=== PATIENT | female | born 1940 | race Caucasian/White ===

== ENCOUNTER 2016-10-08 18:25 | Emergency (ER) | payer MEDICARE, BC ==
[2005-12-30 06:08] VITALS: BP 153/83
[~2016-10-08] VITALS: Ht 160 cm; Wt 77.3 kg
[~2016-10-08 18:25] MED LIST: ACCUPRIL40MGTAB; ACCUPRIL40MGTAB PO; ACTOS 45MG45 MG/TAB PO; ACTOS30 MG PO; AEROSPAN80 MCG/Act IH; ALDACTONE 25MG25 M1 PO; ALPHAG-P-0.1-5ML OP; ASPIRIN E.C. 8181 MG PO; CALCIUM + D 6001 TA1 PO; CALCIUM 600MG+D1 TAB PO; CIPRO 250MG TA250 MG PO; CLARITIN 1010 MG/TAB PO; CLARITIN EYE 5 M5 ML OP; COREG 25MG25 MG/TAB PO; COREG 6.256.25 MG/TA PO; CRANBERRY1 POW PO; CYMBALTA 30MG30 MG PO; DITROPAN 5MG TAB5 MG PO; EPA FISH OIL1000 MG PO; FERROUS SULFATE65 MG PO; FISH OIL500 MG PO; FLONASEALLERGY NS; FLOVENT DI50 MCG/Act IH; FOLIC ACID 40400 MCG PO; GLUCOPHAGE500 MG/TAB PO; LECITHIN SUPER420 MG; MAG-OX 400400 MG/TAB PO; MAGNESIUM250 M1 PO; MAGOX 400241.3 MG PO; NITROSTAT0.4 MG/TAB SL; NORCO 325 MG-51 TAB PO; NORVASC 5MG5 MG/TAB PO; PROBIOTIC-MAJOR PO; PROTONIX 40MG T40 MG PO; SODIUM BICARBO650 MG PO; SYNTHROID0.075 MG/T PO; TRILIPIX 135MG; VITAMIN B-1000 MCG/T PO; VITAMIN C500 MG PO; ZADITOR 5 ML5 ML OP; ZYLOPRIM 100MG100 MG PO; eye promise restore PO
[2016-10-08 19:54] VITALS: BP 158/78; PULSE 76; TEMP 97.8
== END 2016-10-08 19:56 | disposition home or self-care (01) ==
LOC: COL.ER 18:25
DX: Z48.01 Encounter for change or removal of surgical wound dressing (principal); Z47.89 Encounter for other orthopedic aftercare

== ENCOUNTER → 2017-01-26 | Outpatient (CLI) | payer MEDICARE, BC | LOC: MC.RAD 01-25 13:00 | DX: Z12.31 Encounter for screening mammogram for malignant neoplasm of breast (principal); R92.1 Mammographic calcification found on diagnostic imaging of breast ==

== ENCOUNTER → 2018-02-19 | Outpatient (CLI) | payer MEDICARE, BC | LOC: MC.RAD 09:20 | DX: Z12.31 Encounter for screening mammogram for malignant neoplasm of breast (principal) ==

== ENCOUNTER → 2018-06-15 | Outpatient (CLI) | payer MEDICARE, BC | LOC: COL.RAD 10:23 | DX: N28.9 Disorder of kidney and ureter, unspecified (principal); R94.5 Abnormal results of liver function studies; Z90.49 Acquired absence of other specified parts of digestive tract ==

== ENCOUNTER → 2018-09-24 | Outpatient (REF) | LOC: ZMSC 08:16 | DX: Z01.89 Encounter for other specified special examinations (principal) ==

== ENCOUNTER 2019-02-09 04:02 | Inpatient (IN) | payer MEDICARE, BC ==
[2005-12-30 06:08] VITALS: BP 153/83
[~2019-02-09] VITALS: Ht 160 cm; Wt 75.0 kg
[2019-02-09] VITALS (14 sets, daily range): BP systolic 105–191; BP diastolic 46–82; PULSE 65–84; TEMP 97.3–98.1
[~2019-02-09 04:02] MED LIST changes: +ALPHAG-P-0.1-5ML OD; -ALPHAG-P-0.1-5ML OP; -CYMBALTA 30MG30 MG PO; +CYMBALTA 60MG60 MG PO; -FERROUS SULFATE65 MG PO; +NATURAL IRON65 MG PO
[2019-02-09 04:41] LABS: BASO % 0.3 % (0.0-2.0); EOS # 0.4 (0.0-0.7); EOS % 3.5 % (0-4.0); GRAN # 7.4 (1.4-6.5); GRAN % 72.7 % (42.2-75.2); LYMPH # 1.7 (1.2-3.4); MEAN CELL VOLUME 101 fl (80.0-100.0); MEAN CORPUSCULAR HGB CONC 30 g/dl (33.0-37.0); MEAN PLATELET VOLUME 9.8 fl (7.4-10.4); MONO # 0.6 (0.1-0.6); MONO % 6.2 % (1.7-9.3); PLATELET COUNT 189 K/mm3 (130-400); RED BLOOD COUNT 2.31 M/mm3 (4.10-5.30); REDCELL DISTRIBUTION WIDTH-CV 14.8 % (11.5-14.5)
[2019-02-09 04:46] LABS: HEMATOCRIT 23.4 % (37.0-47.0); HEMOGLOBIN 7.1 g/dl (12.5-16.0); MEAN CORPUSCULAR HEMOGLOBIN 31 pg (27.0-31.0)
[2019-02-09 04:57] LABS: ALBUMIN 3.3 gm/dL (3.5-5.0); BILIRUBIN,TOTAL 0.4 mg/dL (0.0-1.0); CALCIUM 8.4 mg/dL (8.4-10.2); CREATININE, serum 1.04 (0.52-1.25); TOTAL PROTEIN 5.7 gm/dL (6.4-8.2)
[2019-02-09 05:01] LABS: POTASSIUM 4.3 mmol/L (3.4-5.0)
[2019-02-09] MEDS ORDERED: NORVASC2.5 MG PO (06:30)
[2019-02-09] MEDS ORDERED: ZYRTEC 10MG10 MG PO (06:31)
[2019-02-09] MEDS ORDERED: CLEOCIN HC150 MG/CAP PO (06:32)
[2019-02-09] MEDS ORDERED: TEMOVATE50TS (06:33)
[2019-02-09] MEDS ORDERED: DAPSONE 25MG TA25 MG PO (06:34)
[2019-02-09] MEDS ORDERED: LASIX 20MG TABL20 MG PO (06:35)
[2019-02-09] MEDS ORDERED: MYRBETR25MG PO (06:36)
[2019-02-09] MEDS ORDERED: COMPLETE MULTI1 TA1 PO (06:42)
[2019-02-09] MEDS ORDERED: FOSAMAX 70MG TA70 MG PO (06:44)
[2019-02-09] MEDS ORDERED: TYLENOL 500MG500 MG PO (06:45)
[2019-02-09] MEDS ORDERED: LEADER EYE ITCH5 ML OP (07:07)
[2019-02-09] MEDS ORDERED: ZYRTEC5 MG PO (07:09)
[2019-02-09] MEDS ORDERED: CRANBERRY500 M3 PO (07:10)
[2019-02-09 13:28] LABS: MEAN CORPUSCULAR HGB CONC 31 g/dl (33.0-37.0); MEAN PLATELET VOLUME 10.6 fl (7.4-10.4); PLATELET COUNT 197 K/mm3 (130-400); RED BLOOD COUNT 2.81 M/mm3 (4.10-5.30); REDCELL DISTRIBUTION WIDTH-CV 18.6 % (11.5-14.5)
[2019-02-09 13:29] LABS: HEMATOCRIT 26.8 % (37.0-47.0); HEMOGLOBIN 8.2 g/dl (12.5-16.0); MEAN CELL VOLUME 95 fl (80.0-100.0); MEAN CORPUSCULAR HEMOGLOBIN 29 pg (27.0-31.0)
--- NOTE | 2019-02-09 16:36 | NUR ---
Plan is to return home with Andrzej in [facility]. Patient erports that she resides in and her PCP is Dr. Lubna Laura. Patient uses [facility] for medications. Patient reports that use of a cane while in the community and CPAP every day. Patient also uses [facility] for medications. A good contact number s [phone] for her spouse. NO additonal concerns at this time.
--- NOTE | 2019-02-09 17:15 | NUR ---
Patient returns from colonoscopy, assessment unchanged.
[2019-02-09 17:46] LABS: HEMATOCRIT 24.5 % (37.0-47.0); HEMOGLOBIN 7.9 g/dl (12.5-16.0)
--- NOTE | 2019-02-09 20:19 | NUR ---
PT DOES HAVE A HOME CPAP BUT DID NOT BRING HERS IN. SHE IS NOT WANTING TO WEAR ONE OF OURS SHE SAYS SHE WILL BE GOING HOME. NO DISTRESS NOTED AND PT IS ON RA WITH MID 90S HER SAT. WILL CONTINUE TO MONITOR.
--- NOTE | 2019-02-09 22:00 | NUR ---
RESTING QUIETLY. UP INDEPENDENTLY. PT DENIES PAIN.
[2019-02-10] VITALS (9 sets, daily range): BP systolic 131–159; BP diastolic 47–60; PULSE 65–78; TEMP 97.7–98.3
--- NOTE | 2019-02-10 05:10 | NUR ---
PT DENIES PAIN. NO BLOODY STOOLS REPORTED BY PT.
[2019-02-10 05:53] LABS: BASO % 0.3 % (0.0-2.0); EOS # 0.3 (0.0-0.7); EOS % 5.7 % (0-4.0); GRAN # 3.4 (1.4-6.5); GRAN % 56.6 % (42.2-75.2); HEMATOCRIT 22.3 % (37.0-47.0); LYMPH # 1.7 (1.2-3.4); LYMPH % 27.8 % (20.0-51.0); MEAN CELL VOLUME 97 fl (80.0-100.0); MEAN CORPUSCULAR HEMOGLOBIN 30 pg (27.0-31.0); MEAN CORPUSCULAR HGB CONC 31 g/dl (33.0-37.0); MEAN PLATELET VOLUME 10.6 fl (7.4-10.4); MONO # 0.5 (0.1-0.6); MONO % 9.1 % (1.7-9.3); PLATELET COUNT 180 K/mm3 (130-400); RED BLOOD COUNT 2.31 M/mm3 (4.10-5.30); REDCELL DISTRIBUTION WIDTH-CV 19.4 % (11.5-14.5)
[2019-02-10 05:54] LABS: HEMOGLOBIN 6.9 g/dl (12.5-16.0)
[2019-02-10 06:06] LABS: CALCIUM 8.3 mg/dL (8.4-10.2); CREATININE, serum 0.79 (0.52-1.25); POTASSIUM 3.5 mmol/L (3.4-5.0)
[2019-02-11 04:00] VITALS: BP 155/53; PULSE 65; TEMP 98
[2019-02-11 05:46] LABS: BASO % 0.6 % (0.0-2.0); EOS # 0.3 (0.0-0.7); EOS % 5.3 % (0-4.0); GRAN # 3.2 (1.4-6.5); GRAN % 52.1 % (42.2-75.2); LYMPH # 1.9 (1.2-3.4); LYMPH % 30.5 % (20.0-51.0); MEAN CELL VOLUME 93 fl (80.0-100.0); MEAN CORPUSCULAR HGB CONC 33 g/dl (33.0-37.0); MEAN PLATELET VOLUME 10.3 fl (7.4-10.4); MONO # 0.7 (0.1-0.6); PLATELET COUNT 166 K/mm3 (130-400); RED BLOOD COUNT 2.69 M/mm3 (4.10-5.30); REDCELL DISTRIBUTION WIDTH-CV 18.3 % (11.5-14.5)
[2019-02-11 05:59] LABS: CALCIUM 8.5 mg/dL (8.4-10.2); CREATININE, serum 0.8 (0.52-1.25); POTASSIUM 3.7 mmol/L (3.4-5.0)
[2019-02-11 06:01] LABS: HEMATOCRIT 24.9 % (37.0-47.0); HEMOGLOBIN 8.1 g/dl (12.5-16.0); MEAN CORPUSCULAR HEMOGLOBIN 30 pg (27.0-31.0)
--- NOTE | 2019-02-11 06:29 | NUR ---
HGB 8.1. PT INDEPENDENT IN ROOM.
[2019-02-11 07:14] VITALS: BP 161/56; PULSE 69; TEMP 98
--- NOTE | 2019-02-11 07:51 | NUR ---
Patient sitting up at edge of bed, She did well with breakfast. Reports she is ready to go home today. She denies sob, and dizzyness. Patient took her own home medications without this nurse being aware, why documentation on emar is patient refused. Will continue to monitor.
--- NOTE | 2019-02-11 12:39 | NUR ---
Patient ready for discharge. rounded. Patient spouse at bedside. All discharge paperwork reviewed. Int DC. We reivewed importance of making follow up appt with PCP & GI tmrw. Patient home medication list reviewed with last dose taken. Patient denies questions or concerns, thankful to be going home. Her spouse taking her with all belongings.
== END 2019-02-11 12:42 | disposition home or self-care (01) | DRG 394 ==
LOC: COL.ER 04:02 → SURG 07:40 → COL.ER 07:40 → SURG 02-11 12:42
PROVIDERS: Emergency Medicine; Internal Medicine Gastroenterology; ADMIT Family Medicine
PROC: 0W3P8ZZ Control Bleeding in Gastrointestinal Tract, Via Natural or Artificial Opening Endoscopic (ICD-10-PCS; principal; 2019-02-09 16:30)
PROC: 30253N1 (ICD-10-PCS; 2019-02-10)
DX: K63.3 Ulcer of intestine (principal); K91.840 Postprocedural hemorrhage of a digestive system organ or structure following a digestive system procedure; Y83.8 Other surgical procedures as the cause of abnormal reaction of the patient, or of later complication, without mention of misadventure at the time of the procedure; Y73.3 Surgical instruments, materials and gastroenterology and urology devices (including sutures) associated with adverse incidents; Y92.234 Operating room of hospital as the place of occurrence of the external cause; I12.9 Hypertensive chronic kidney disease with stage 1 through stage 4 chronic kidney disease, or unspecified chronic kidney disease; E11.22 Type 2 diabetes mellitus with diabetic chronic kidney disease; N18.3 Chronic kidney disease, stage 3 (moderate); I49.5 Sick sinus syndrome; Z95.0 Presence of cardiac pacemaker; K21.9 Gastro-esophageal reflux disease without esophagitis; G47.33 Obstructive sleep apnea (adult) (pediatric); M85.80 Other specified disorders of bone density and structure, unspecified site; K59.00 Constipation, unspecified; E78.5 Hyperlipidemia, unspecified; D63.1 Anemia in chronic kidney disease
CPT/HCPCS: 99222-AI; 99232-AI; 99239; C9113; J2250; J3010; J7030; P9016; Q9967

== ENCOUNTER → 2019-03-26 | Outpatient (CLI) | payer MEDICARE, BC ==
[~2019-03-26] MED LIST changes: +CLEOCIN HC150 MG/CAP PO; +COMPLETE MULTI1 TA1 PO; +CRANBERRY500 M3 PO; +DAPSONE 25MG TA25 MG PO; +FOSAMAX 70MG TA70 MG PO; +LASIX 20MG TABL20 MG PO; +LEADER EYE ITCH5 ML OP; +MYRBETR25MG PO; +NORVASC2.5 MG PO; +TEMOVATE50TS; +TYLENOL 500MG500 MG PO; +ZYRTEC 10MG10 MG PO; +ZYRTEC5 MG PO
== END ==
LOC: MC.RAD 09:41
DX: Z12.31 Encounter for screening mammogram for malignant neoplasm of breast (principal)

== ENCOUNTER → 2020-03-30 | Outpatient (CLI) | payer MEDICARE, BC | LOC: MC.RAD 13:35 | DX: Z12.31 Encounter for screening mammogram for malignant neoplasm of breast (principal) ==

== ENCOUNTER 2020-09-21 09:32 | Outpatient (CLI) | payer MEDICARE, BC ==
[2005-12-30 06:08] VITALS: BP 153/83
--- NOTE | 2020-09-16 10:09 | NUR ---
LMOM WITH INSTRUCTIONS AND CALL BACK NUMBER
[~2020-09-21] VITALS: Ht 160 cm; Wt 75.1 kg
[2020-09-21] VITALS (14 sets, daily range): BP systolic 132–165; BP diastolic 62–91; PULSE 61–78
[~2020-09-21 09:32] MED LIST changes: +CRESTOR5 MG PO
[2020-09-21] MEDS ORDERED: NORVASC 5MG5 MG/TAB PO (09:54)
--- NOTE | 2020-09-21 14:20 | NUR ---
pt discharged via w/c to car with family
== END 2020-09-21 14:20 | disposition home or self-care (01) ==
LOC: COL.RAD 09:32
DX: Z95.0 Presence of cardiac pacemaker (principal); Z96.82 Presence of neurostimulator

== ENCOUNTER → 2021-04-01 | Outpatient (CLI) | payer MEDICARE, BC | LOC: MC.RAD 13:28 | DX: Z12.31 Encounter for screening mammogram for malignant neoplasm of breast (principal) ==

== ENCOUNTER → 2021-05-07 | Outpatient (CLI) | payer MEDICARE, BC | LOC: COL.RAD 12:16 | DX: N90.89 Other specified noninflammatory disorders of vulva and perineum (principal); Z90.710 Acquired absence of both cervix and uterus ==

== ENCOUNTER → 2022-04-01 | Outpatient (CLI) | payer MEDICARE, BC | LOC: MC.RAD 07:44 | DX: Z12.31 Encounter for screening mammogram for malignant neoplasm of breast (principal) ==

== ENCOUNTER 2023-01-24 08:20 | Day surgery (SDC) | payer MEDICARE, BC ==
[2005-12-30 06:08] VITALS: BP 153/83
[~2023-01-24] VITALS: Ht 160 cm; Wt 68.7 kg
[2023-01-24] MEDS ORDERED: FLONASE NASAL S16 GM NS (08:59)
[2023-01-24] MEDS ORDERED: ARICEPT10 MG PO (09:01)
[2023-01-24 10:32] VITALS: BP 144/61; PULSE 69; TEMP 97.5
--- NOTE | 2023-01-24 10:32 | NUR ---
PATIENT AMBULATED TO CHAIR WITH STEADY GAIT AND 2 ASSIST. PATIENT ALERT AND ORIENTED X3, DENIES PAIN AND NAUSEA. BREATHING REGULAR AND UNLABORED. SEE CHART FOR VITAL SIGNS. NURSE HANDOFF COMPLETED IN ROOM. PATIENT HAD APPLE JUICE AND A MUFFIN. BOTH FOOD AND DRINK TOLERATED WELL. PATIENT SPOUSE IN ROOM. DR. FISHER MET WITH PATIENT TO DISCUSS PROCEDURE. CALL LIGHT IN REACH.
[2023-01-24 10:45] VITALS: BP 147/74; PULSE 61
[2023-01-24 11:00] VITALS: BP 165/67; PULSE 62
[2023-01-24 11:15] VITALS: BP 140/67; PULSE 64
--- NOTE | 2023-01-24 11:15 | NUR ---
PATIENT DENIES PAIN AND NAUSEA, TOLERATING FOOD AND DRINK. DISCHARGE TEACHING COMPLETED WITH PRINTED EDUCATION AND INSTRUCTIONS SENT HOME WITH PATIENT. PATIENT VERBALIZED UNDERSTANDING OF TEACHING. IV REMOVED. PATIENT DISCHARGED HOME WITH SPOUSE TRANSPORT.
[2023-01-24] MEDS ORDERED: ZYLOPRIM 100MG100 MG PO (11:35)
[2023-01-24] MEDS ORDERED: COLESTID 1GM1 G PO (12:24)
[2023-01-24] MEDS ORDERED: TRIAMC 0.1 454 TOP (12:28)
[2023-01-24] MEDS ORDERED: VISION FORMULA1 EAC1 PO (12:29)
[2023-01-24] MEDS ORDERED: WOMEN'S DAILY1 TAB PO (12:29)
[2023-01-24 12:35] VITALS: BP 165/65; PULSE 63; TEMP 96.8
== END 2023-01-24 11:22 | disposition home or self-care (01) ==
LOC: SDCO 08:20
DX: D12.2 Benign neoplasm of ascending colon (principal); D12.3 Benign neoplasm of transverse colon; D12.5 Benign neoplasm of sigmoid colon; K64.0 First degree hemorrhoids; K57.30 Diverticulosis of large intestine without perforation or abscess without bleeding; Z80.0 Family history of malignant neoplasm of digestive organs; Z95.0 Presence of cardiac pacemaker
CPT/HCPCS: J2704; J7120

== ENCOUNTER 2023-12-12 05:52 | Outpatient (CLI) | payer MEDICARE, BC ==
[2005-12-30 06:08] VITALS: BP 153/83
[2023-12-12] VITALS (7 sets, daily range): BP systolic 118–183; BP diastolic 78–91; PULSE 60–86; TEMP 97.8
[~2023-12-12] VITALS: Ht 160.1 cm; Wt 66.0 kg
[~2023-12-12 05:52] MED LIST changes: +ARICEPT 5MG PO; +CLEOCIN HCL300 MG PO; +COLESTID 1GM1 G PO; +FLONASE NASAL S16 GM NS; +MASON NATURAL2000 IU PO; +MULTIVITAMIN FO1 CAP PO; +NORVASC 10MG10 MG PO; -TEMOVATE50TS; +TEMOVATE50TS TOP; +THE MEDICINE S200 M2 PO; +TRIAMC 0.1 454 TOP; +VISION FORMULA1 EAC1 PO; +WOMEN'S DAILY1 TAB PO; +ZESTRIL 10MG10 MG PO
[2023-12-12] MEDS ORDERED: PROBIOTIC BLEN1 EACH PO (06:50)
[2023-12-12] MEDS ORDERED: LR 1,000 ML IV SCH (08:15)
--- NOTE | 2023-12-12 08:57 | NUR ---
Refer to [facility] Report for procedural sedation/notes
[2023-12-12] MEDS ORDERED: Midazolam 2 MG/2 ML VIAL IV SCH (09:17)
[2023-12-12] MEDS ORDERED: fentaNYL 50 MCG/ML 2 ML VIAL IV SCH (09:18)
--- NOTE | 2023-12-12 09:45 | NUR ---
Pt back to EU[facility] - bedside handoff performed with Henna Crockett RN - access site and vitals reviewed together and stable. HOB flat. Call light in reach - at bedside
--- NOTE | 2023-12-12 09:45 | NUR ---
pt returned to eu 11 from [facility] builder, awake and alert, in room, bandaid to back is clean and dry, call light in reach, rests supine, has no c/o
--- NOTE | 2023-12-12 10:33 | NUR ---
pt up on bsc to void, transferred well, has no c/o pain, states i feel fine, takes drink and snack
--- NOTE | 2023-12-12 11:30 | NUR ---
pt sat on side of bed, helped with dressing, pt has no pain iv d'cd intact, reviewed discharge inst. with pt and on care of site, and moderate sedation. pt discharged via w/c to car at 1140
== END 2023-12-12 11:45 | disposition home or self-care (01) ==
LOC: COL.CAR 05:52
DX: S32.010A Wedge compression fracture of first lumbar vertebra, initial encounter for closed fracture (principal); M54.50 Low back pain, unspecified; G89.29 Other chronic pain
CPT/HCPCS: C1713; J0665-JZ; J2250; J3010; J7120

== ENCOUNTER 2024-05-03 08:25 | Outpatient (CLI) | payer MEDICARE, BC ==
[2005-12-30 06:08] VITALS: BP 153/83
[~2024-05-03] VITALS: Ht 160.2 cm; Wt 66.8 kg
[2024-05-03] VITALS (7 sets, daily range): BP systolic 112–143; BP diastolic 51–65; PULSE 60–65; TEMP 97
[~2024-05-03 08:25] MED LIST changes: +ACTOS 15MG TAB15 MG PO; -LASIX 20MG TABL20 MG PO; +LASIX 40MG TABL40 MG PO; -MASON NATURAL2000 IU PO; +PROBIOTIC BLEN1 EACH PO; +VITAMIN D31000 I1 PO; -ZESTRIL 10MG10 MG PO; +ZESTRIL 20MG TA20 MG PO
[2024-05-03] MEDS ORDERED: B-121000 MCG PO (10:04)
[2024-05-03] MEDS ORDERED: VITAMINC1000TA PO (10:05)
[2024-05-03] MEDS ORDERED: COLESTID 1GM1 G PO (10:11)
[2024-05-03] MEDS ORDERED: APRESOLINE50 MG PO (10:16)
[2024-05-03] MEDS ORDERED: SODIUM BICARBO650 MG PO (10:19)
[2024-05-03] MEDS ORDERED: TRIAMCINOLONE A15 G3 TP (10:23)
[2024-05-03] MEDS ORDERED: Midazolam 2 MG/2 ML VIAL IV SCH (11:40)
[2024-05-03] MEDS ORDERED: fentaNYL 50 MCG/ML 2 ML VIAL IV SCH (11:41)
[2024-05-03] MEDS ORDERED: Heparin 1,000 UNITS/ML 10 ML Multi-Dose VIAL ICA SCH (11:41)
[2024-05-03] MEDS ORDERED: Heparin 1,000 UNITS/ML 10 ML Multi-Dose VIAL IV SCH (11:43)
[2024-05-03] MEDS ORDERED: Lidocaine 2% w EPI (1:100,000) 20 ML Multi-Dose VIAL IJ SCH (11:49)
--- NOTE | 2024-05-03 12:15 | NUR ---
Pt returned from procedure.report dona Bowling RN.Pt obsered to have slight drainage on dressing upon arrival.Will continue to monitor.
--- NOTE | 2024-05-03 14:07 | NUR ---
Dressing observed with same slight drainage as upon arrival from procedure.Pt reports she has dialysis at 0630am tomorrow. Discharge instructions given to pt.Pt verbalizes understanding.Pt escorted out via wheelchair by this nurse.
== END 2024-05-03 15:03 ==
LOC: COL.CAR 08:25
DX: N18.9 Chronic kidney disease, unspecified (principal); I12.9 Hypertensive chronic kidney disease with stage 1 through stage 4 chronic kidney disease, or unspecified chronic kidney disease
CPT/HCPCS: J0737; J1644; J2250; J3010